=== PATIENT | female | born 1955 ===

== ENCOUNTER 2021-09-22 12:33 | Outpatient (CLI) | payer MEDICARE ==
--- NOTE | 2021-09-22 19:11 | Magnetic Resonance Report ---
MRI CERVICAL SPINE WITHOUT CONTRAST INDICATION / CLINICAL INFORMATION: CERVICAL RADICULOPATHTY. TECHNIQUE: Multisequence, multiplanar images of the cervical spine were obtained. COMPARISON: None available. FINDINGS: POSTOPERATIVE CHANGES: Status post ACDF C4-5 and C5-6 levels. CRANIOCERVICAL JUNCTION:No significant abnormality. ALIGNMENT: No significant abnormality. VERTEBRAE:Aside from postoperative changes normal bone marrow signal intensity is maintained througho ut. CERVICAL INTERVERTEBRAL DISCS: Advanced disc desiccation is noted at the C6-7 level. Disc height and signal intensity are decreased slightly at the C3-4 level. VISUALIZED SPINAL CORD: No intrinsic cord lesions are identified. [id number] ANALYSIS: C2-3: Right worse than left facet arthropathy contributes to moderate right-sided C3 nerve root neuro foraminal stenosis. Central spinal canal and left L3 nerve root neuroforamina are adequate in size. C3-4: Mild disc desiccation is noted. Bilateral facet arthritic changes are observed. Broad-based dis c protrusion, facet arthropathy and ligamentous thickening result in moderate central canal stenosis at the C3-4 level. CSF signal intensity is largely effaced from the thecal sac at this level. AP diam eter of the spinal canal is reduced to about 7 mm. Moderate bilateral neuroforaminal narrowing is obs erved. C4-5: Status post ACDF with solid bone union. Moderate left-sided neuroforaminal stenosis is present at the C5 nerve root level. Central spinal canal and right C5 nerve root neuroforamina are adequate i n size. C5-6: Status post ACDF with solid bone union. Central spinal canal and neuroforamina are adequately m aintained. C6-7: Advanced disc desiccation is noted. Anterior and posterior osteophyte formation is observed. Bi lateral facet arthropathy is evident. This combination of degenerative changes contributes to mild ce ntral canal stenosis at the C6-7 level. The C7 nerve root neuroforamina are mildly narrowed bilateral ly. C7-T1: No significant disc abnormality, spinal canal stenosis, or neural foraminal stenosis. PARASPINAL SOFT TISSUES: No significant abnormality. ADDITIONAL FINDINGS: None. IMPRESSION: 1. Status post ACDF C4-5 and C5-6 levels with solid bone union. 2. Advanced degenerative changes at C3-4 level where moderate central canal stenosis and moderate evie ateral neuroforaminal narrowing are observed. At C6-C7 mild central canal stenosis and mild bilateral neuroforaminal narrowing are noted. Signer Name: Tavon Lang MD Signed: 09/22/2021 7:07 PM Workstation Name: [id number]
== END 2021-09-22 12:34 | disposition home or self-care (01) ==
LOC: MRI 12:33
DX: M50.11 Cervical disc disorder with radiculopathy, high cervical region (principal); M48.02 Spinal stenosis, cervical region; Z98.1 Arthrodesis status
CPT/HCPCS: 72141